=== PATIENT | female | born 1955 | race Caucasian/White ===

== ENCOUNTER → 2018-05-31 | Outpatient (CLI) | payer OTHER ==
[~2018-05-31] MED LIST: CALCIUM 500 +1 EAC5 PO; CENTRUM SILVER1 EAC4 PO; CIPRO500 MG PO; CLOTRIMAZOLE-BE15 GM TP; CYMBALTA20 MG PO; DICLOFENAC SODI75 MG PO; DIPROLENE 0.05%15 GM TP; DULCOLAX STOOL100 MG PO; FISH OIL 1,001000 M2 PO; FLEXERIL PO; FOLIC ACID1 MG PO; HYDROCODONE-AP1 EAC6 PO; METHOTREXATE 22.5 M1 PO; NUVIGIL150 MG PO; OMEGA-31000 M1 PO; ONDANSETRON HCL4 M2 PO; OXYBUTYNIN 5 MG5 M2 PO; PAXIL10 MG; PRILOSEC 20 MG20 MG PO; PROBIOTIC1 EAC1 PO; PROPRANOLOL 1010 M1 PO; TREXALL15 MG PO; VENTOLIN HFA 1818 GM INH; VITAMIN D1000 UNI1 PO; ZOCOR20 MG PO; ZOLOFT50 MG PO
[2018-05-31 16:13] LABS: ABSOLUTE EOSINOPHILS 0.2 thou/uL (0.0-0.7); ABSOLUTE LYMPHOCYTES 2.2 thou/uL (0.8-5.3); ABSOLUTE MONOCYTES 0.5 thou/uL (0.0-1.2); ABSOLUTE NEUTROPHILS 4.7 thou/uL (1.6-8.1); BASOPHILS 0.5 %; EOSINOPHILS 2.4 %; HEMOGLOBIN 13.9 gm/dL (12.0-15.0); LYMPHOCYTES 28.4 %; MCH 29.8 pg (26.0-34.0); MCHC 33.1 g/dL (28.0-37.0); MCV 90.2 fL (80.0-100.0); MONOCYTES 7.1 %; MPV 9.5 fl. (7.2-11.1); NUCLEATED RBCS 0 /100WBC; PLATELET COUNT* 184 thou/uL (150-400); POLYS 61.6 %; RBC 4.66 mil/uL (4.20-5.00); RDW-CV 12.9 % (10.5-14.5); WBC 7.6 thou/uL (4.0-11.0)
[2018-05-31 16:26] LABS: ALBUMIN 3.5 g/dL (3.4-5.0); ALKALINE PHOSPHATASE 56 U/L (46-116); ANION GAP 7 mmol/L (7-16); BUN 14 mg/dL (7-18); CALCIUM 8.7 mg/dL (8.5-10.1); CHLORIDE 103 mmol/L (98-107); CHOLESTEROL 195 mg/dL (<200); CO2 31 mmol/L (21-32); CREATININE 0.8 mg/dL (0.6-1.3); GLUCOSE 92 mg/dL (70-99); HDL CHOLESTEROL 52 mg/dL (>40); LDL CHOLESTEROL 123 mg/dL (<100); POTASSIUM 3.7 mmol/L (3.5-5.1); SERUM ASSESSMENT Clear; SGOT 14 U/L (15-37); SGPT 16 U/L (30-65); SODIUM 141 mmol/L (136-145); TC:HDL 3.8 Ratio (Not establshd); TOTAL BILIRUBIN 0.3 mg/dL (<0.1-1.0); TRIGLYCERIDE 101 mg/dL (<150); VLDL 20 mg/dL (<40)
[2018-06-01 04:06] LABS: GLYCOHEMOGLOBIN (HGB A1C) 5.3 % (4.8-5.6)
== END ==
LOC: M.LAB 15:55
PROVIDERS: Family Medicine
DX: Z00.01 Encounter for general adult medical examination with abnormal findings (principal); E55.9 Vitamin D deficiency, unspecified; L40.50 Arthropathic psoriasis, unspecified; E87.6 Hypokalemia; R25.2 Cramp and spasm; Z79.899 Other long term (current) drug therapy

== ENCOUNTER → 2018-06-22 | Outpatient (CLI) | payer OTHER ==
[2018-06-22 17:12] LABS: URINE BILIRUBIN NEGATIVE (Negative); URINE BLOOD 2+ (Negative); URINE CLARITY CLEAR; URINE COLOR YELLOW; URINE GLUCOSE-RANDOM NEGATIVE (Negative); URINE KETONES NEGATIVE (Negative); URINE LEUKOCYTES-REFLEX NEGATIVE (Negative); URINE NITRITE-REFLEX NEGATIVE (Negative); URINE PROTEIN NEGATIVE (Negative); URINE SPECIFIC GRAVITY >= 1.030 (1.005-1.030); URINE UROBILINOGEN 0.2 E.U./dl (0.2-1.0)
[2018-06-22 17:39] LABS: BACTERIA-REFLEX 1-9 Few /HPF (None Seen); CASTS None Seen /LPF (None Seen); SQUAMOUS 0-3 Few /LPF (0-3); URINE RBC 0-2 Rare /HPF (0-2); URINE WBC-REFLEX 0-5 Rare /HPF (0-5)
[2018-06-22 17:40] LABS: CRYSTALS None Seen /LPF (None Seen)
== END ==
LOC: M.LAB 16:58
PROVIDERS: Obstetrics & Gynecology
DX: R35.0 Frequency of micturition (principal); Z88.8 Allergy status to other drugs, medicaments and biological substances

== ENCOUNTER → 2018-06-27 | Outpatient (CLI) | payer OTHER | LOC: M.RAD 06-22 16:12 | DX: Z12.31 Encounter for screening mammogram for malignant neoplasm of breast (principal); Z01.411 Encounter for gynecological examination (general) (routine) with abnormal findings; M85.88 Other specified disorders of bone density and structure, other site; L40.50 Arthropathic psoriasis, unspecified; R29.890 Loss of height; Z91.040 Latex allergy status; Z78.0 Asymptomatic menopausal state; Z82.62 Family history of osteoporosis ==

== ENCOUNTER → 2018-07-20 | Outpatient (CLI) | payer OTHER | LOC: M.LAB 12:49 | DX: M85.80 Other specified disorders of bone density and structure, unspecified site (principal) ==

== ENCOUNTER → 2019-02-23 | Outpatient (CLI) | payer OTHER | LOC: M.MRI 06:30 | DX: M51.37 Other intervertebral disc degeneration, lumbosacral region (principal); R53.1 Weakness; M51.36 Other intervertebral disc degeneration, lumbar region; M51.26 Other intervertebral disc displacement, lumbar region ==

== ENCOUNTER → 2019-03-27 | Outpatient (CLI) | payer OTHER ==
[~2019-03-27] MED LIST changes: -CYMBALTA20 MG PO; +CYMBALTA30 MG PO; +CYMBALTA60 MG PO; +FLONASE 0.05%50 MCG NASAL; +MEDROLDOSEPACK PO; +TUMERIC PO; +ZALEPLON 10 MG10 M1 PO; +ambien PO
--- NOTE | 2019-03-28 14:27 | PAINCON ---
[address] [address] PAIN MANAGEMENT CONSULTATION Name: PRINCE BEDOLLA Room: [facility] JOSH HugoBen#: [id number] Admission: 03/27/19 Attend Phys: Salomón Sims MD Discharge: Date of : 55 Report #: [id number] THIS REPORT FOR: //name// CC: Salomón Flores DATE OF SERVICE: 03/27/2019 CHIEF COMPLAINT: Low back pain and pain in the sciatic nerve. HISTORY OF PRESENT ILLNESS: The patient is a 63-year-old female who has been referred to the pain clinic for evaluation of back and leg pain. The patient states that in the past, she has had problems with her low back. She has had pain that has radiated down into the sciatic nerve. She is experiencing pain that is problematic on the left leg. She also has some left hip pain. Notes that the pain is worse when she is active and doing quite a bit of walking. She has noticed some pain and discomfort when lying flat. She has used prednisone Dosepak, which have been helpful. Describes her discomfort as continuous, burning, aching and throbbing. She has had some shooting pain in her left leg as well as some pain in the left groin area. She notes worsening of this pain in 01/2019. Because of the benefits from the epidural steroid injection in the past, she has come to the pain clinic with the desire to undergo an injection. Also, has a history of psoriatic arthritis, fibromyalgia and irritable bowel problems. Rates her pain as an 8/10. ALLERGIES: ZANAFLEX, HYDROXYCHLOROQUINE, ARAVA, LATEX, SULFA. CURRENT MEDICATIONS: Propranolol 10 mg b.i.d., Flexeril 10 mg, simvastatin 20 mg, albuterol, fluconazole, Prilosec 20 mg, probiotic, fish oil 1000 mg, vitamin D 1000 mg, calcium plus D, folic acid, methotrexate 15 mg 1 time per week, Cymbalta, diclofenac, oxybutynin 5 mg, promethazine. PAST MEDICAL HISTORY: Scarlet fever, mitral valve prolapse, colon problems, irritable bowel, emotional problems, depression, anxiety, joint disease, arthritis, psoriatic arthritis, fibromyalgia, cytomegalovirus, sleep apnea. PAST SURGICAL HISTORY: Hernia repair, carpal tunnel release, pins in the right and left toes, tonsils in 1959, hammertoes with pins in 2007, bilateral carpal syndrome and tunnel release in , and there is left femoral hernia repair in 1984, right inguinal hernia repair in 2013, hiatal hernia and umbilical hernia repair in 1999. 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 She is working at this juncture. REVIEW OF SYSTEMS: Generally good health, recent weight changes, fatigue, [facility] [address] [facility] [place] [address] PAIN MANAGEMENT CONSULTATION Name: PRINCE BEDOLLA Room: [facility]#: [id number] Admission: 03/27/19 Attend Phys: Salomón Sims MD Discharge: Date of : 55 Report #: [id number] weakness, headaches, wears glasses, cataracts, hearing loss, palpitations, frequent diarrhea, frequent urination, musculoskeletal joint pain, joint stiffness and swelling, weakness of muscles, muscle pain, back pain, difficulty walking, change in hair and nails, frequent recurring headaches, lightheadedness, dizziness, numbness and tingling sensation, depression, insomnia, SULFA REACTIONS TO ANESTHETICS. LABORATORY DATA: MRI of the lumbar spine dated 02/23/2019: 1. L3-L4, moderate degenerative disk disease. Mild facet arthropathy bilaterally. Mild broad-based disk bulge. No spinal stenosis or neural foraminal narrowing. No changes since previous in 2014. 2. L4-L5, severe facet arthropathy is worse since previous with new grade 1 anterolisthesis of L4. Mild to moderate degenerative disk disease with mild broad-based disk bulge. No spinal stenosis or neural foraminal narrowing. 3. L5-S1, mild degenerative disk disease and severe facet arthropathy, slightly worse since previous 2014. Mild broad-based disk bulge. No spinal stenosis or neural foraminal narrowing. IMPRESSION: 1. At L4-L5, worsening of facet arthropathy since 05/28/2015 with new grade 1 anterolisthesis of L4. Mild to moderate degenerative disk disease and mild broad-based disk bulge. 2. At L5-S1, moderate to severe facet arthropathy with mild degenerative disk disease, slightly worse since previous. 3. At L3-L4, moderate degenerative disk disease is unchanged. PAIN CLINIC ASSESSMENT/PQRS: 1. History of osteoarthritis. The patient has fibromyalgia for the last 15 years. She is being treated for psoriatic arthritis. 2. Height 5 feet 2 inches, weight 184 pounds, BMI is 33. 3. Vital signs: Blood pressure 144/79, heart rate 76, respiratory rate 16, room air saturation is 94%, temperature 98.4. 4. Pain intensity 05/05. 5. Fall history. The patient has not fallen in the last 3 months. 6. Blood thinner. The patient is not on a blood thinning medication. 7. Hypertension. The patient is not being treated for hypertension. 8. Opioid greater than 6 weeks. The patient is not on an opioid regimen on a regular basis. 9. Risk assessment tool, low for opioid use. 10. Functional assessment tool, 53/70. 11. Fall history. 12. Recreational drug use. The patient denies use of recreational drugs. 13. Tobacco: The patient denies use of tobacco. 14. Alcohol: The patient denies frequent use of alcoholic beverages. PHYSICAL EXAMINATION: [place] [address] PAIN MANAGEMENT CONSULTATION Name: PRINCE BEDOLLA Room: [facility]#: [id number] Admission: 03/27/19 Attend Phys: Salomón Sims MD Discharge: Date of : 55 Report #: [id number] GENERAL: The patient is a well-developed, well-nourished, white female. Appears her stated age. She is alert and oriented x 3. Her affect is appropriate. Speech is fluent. HEENT: Normocephalic, atraumatic. Extraocular eye muscles intact. Sclerae nonicteric. Mucous membranes moist. HEART: Regular rate, history of mitral valve prolapse, cannot hear a murmur. NECK: Without adenopathy or JVD. MUSCULOSKELETAL: Upper extremity muscle strength is judged to be 5-/5 for the major muscle groups in the upper extremity. Deep tendon reflexes are trace at the biceps bilaterally. The patient is able to lift her hands over her head. The patient stands with a slightly forward bending positioning. States that she notes increased pain if she stands directly and straight. Left and right lateral bending cause some increased back discomfort. The patient is unable to stand erect and perform lumbar extension. Notes that this causes more pain and discomfort. Deep tendon reflexes at the knees are trace. Ankles absent. The patient states that she sleeps in a recliner. She is unable to lay comfortably flat. While lying flat, notes some increased pain in her back. Anterior, posterior spring tests are negative. The patient does complain of some numbness and tingling down in the lower portion of her back on the left side with pain radiating down the L5-S1 dermatomal distribution on the left. Has left and right paraspinal muscle soreness. Notes some pain in the left groin area and anterior portion of her calf. IMPRESSION: 1. Lumbar radiculopathy with L5-S1 dermatomal distribution. 2. History of lumbar radiculopathy. 3. Mitral valve prolapse. 4. Degenerative joint disease with psoriatic arthritis and osteoarthritis. 5. History of migraine headaches. 6. Irritable bowel syndrome. 7. Fibromyalgia. 8. Morbid obesity. 9. Status post Diane fundoplication. 10. Status post umbilical hernia and inguinal herniorrhaphies. 11. Status post bunionectomies and hammertoe repair. RECOMMENDATIONS: We discussed treatment options with the patient. At this juncture, we will provide her with a Medrol Dosepak. She would then after she has been precerted by her insurance carrier return to the pain clinic at which time she will then undergo an epidural steroid injection to help with the lumbar radicular pain she is experiencing down into her leg. She will call us [place] [address] PAIN MANAGEMENT CONSULTATION Name: PRINCE BEDOLLA Room: [facility] JOSH Garcia#: [id number] Admission: 03/27/19 Attend Phys: Salomón Sims MD Discharge: Date of : 55 Report #: [id number] We would like to thank you for letting us participate in her care. We hope she continues to improve. <ELECTRONICALLY SIGNED> By: Salomón Sims MD 03/28/19 1427 [id number]. Raheel Sims MD /[facility]
== END ==
LOC: M.PC 02-22 10:10
DX: M51.37 Other intervertebral disc degeneration, lumbosacral region (principal); M12.88 Other specific arthropathies, not elsewhere classified, other specified site; M47.816 Spondylosis without myelopathy or radiculopathy, lumbar region; M43.17 Spondylolisthesis, lumbosacral region; I10 Essential (primary) hypertension

== ENCOUNTER → 2019-04-17 | Outpatient (CLI) | payer OTHER ==
--- NOTE | ~2019-04-17 | PAINCON ---
[address] [address] PAIN MANAGEMENT CONSULTATION Name: PRINCE BEDOLLA Room: [facility].#: [id number] Admission: 04/17/19 Attend Phys: Salomón Sims MD Discharge: Date of : 55 Report #: [id number] THIS REPORT FOR: //name// CC: Salomón Flores DO DATE OF SERVICE: 04/17/2019 CHIEF COMPLAINT: Here for an epidural steroid injection. HISTORY: The patient is a 63-year-old female who has been referred to the Pain Clinic because of chronic pain involving her low back area. She has had pain that radiates down into the lower portion of her back. She has undergone epidural steroid injections in the past because of sciatic nerve problems. She is having pain and discomfort in her low back and hip on both sides. Left side is more problematic than right. Has not noticed any significant bowel or bladder dysfunction. She has returned today for an epidural steroid injection. She has noted worsening of her pain since early January. ALLERGIES: ZANAFLEX, HYDROCHLOROQUINE, ARAVA, LATEX, SULFA. PAIN CLINIC ASSESSMENT/PQRS: 1. History of osteoarthritis. The patient has fibromyalgia for the last 15 years. She is also being treated for psoriatic arthritis. 2. Height 5 feet 2 inches, weight 184 pounds, BMI is 33. 3. Vital Signs: Blood pressure 112/61, heart rate 74, respiratory rate 16, room air saturation 95%, temperature 98.5. 4. Pain intensity, 9/10. 5. Fall history: The patient has not fallen in the last 3 months. 6. Blood thinner. The patient is not on a blood thinning medication. 7. Hypertension. The patient is not being treated for hypertension. 8. Opioids greater than 6 weeks. The patient is not on a regular opioid regimen. 9. Risk assessment tool, low for opioid use. 10. Functional assessment tool, 53/70. 11. Fall history: The patient has not fallen. 12. Recreational drug use. The patient denies use of recreational drugs. 13. Tobacco: The patient denies use of tobacco. 14. Alcohol: The patient denies frequent use of alcoholic beverages. PHYSICAL EXAMINATION: GENERAL: The patient is a well-developed, well-nourished white female. Appears her stated age. She is alert and oriented x 3. Her affect is appropriate. Speech is fluent. HEENT: Normocephalic, atraumatic. Extraocular eye [place] [address] PAIN MANAGEMENT CONSULTATION Name: PRINCE BEDOLLA Room: [facility]#: [id number] Admission: 04/17/19 Attend Phys: Salomón Sims MD Discharge: Date of : 55 Report #: [id number] nonicteric. Mucous membranes are moist. HEART: Regular rate. The patient has history of mitral valve prolapse. NECK: Without adenopathy or JVD. MUSCULOSKELETAL: Without significant scoliosis, kyphosis or lordosis. Muscle strength in the upper extremity 5-/5, and muscle strength in lower extremity 5-/5. The patient has pain and discomfort that is radiating down to the most posterior portion of her back in the left down into the L5-S1 dermatomal distribution. Has pain and discomfort on the right side in the L5-S1 dermatomal distribution as well. IMPRESSION: 1. Lumbar radiculopathy with L5-S1 dermatomal distribution. 2. History of lumbar radiculopathy. 3. Mitral valve prolapse history. 4. Degenerative joint disease with psoriatic arthritis and osteoarthritis. 5. History of migraine headaches. 6. Irritable bowel syndrome. 7. Fibromyalgia. 8. Morbid obesity. 9. Status post Diane fundoplication. 10. Status post umbilical hernia and inguinal herniorrhaphies. 11. Status post bunionectomies and hammertoe repair. RECOMMENDATIONS: We discussed treatment options with the patient. Risks and benefits of an epidural steroid injection were again reviewed. Possible complications of the procedure, which could include but are not limited to infection, worsening pain, no improvement in pain, nerve damage, spinal headache and the patient elects to proceed. PROCEDURE NOTE: The patient was taken to the procedure area. She was then placed in a prone position. A pillow was placed under the abdomen to bolster and improve positioning. Her back was sterilely prepped with a Betadine solution and allowed to dry. Fluoroscopy using anterior, posterior as well as lateral viewing were implemented. A 25-gauge needle was then injected in the L5-S1 midline area. A total of 5 mL of 0.5% bupivacaine was infiltrated. A 17-gauge Tuohy with loss of resistance technique was used to gain access to the epidural space. There was no CSF, heme or paresthesia. Total of 80 mg Depo-Medrol, 40 mg triamcinolone and 2 mL of 0.25% bupivacaine was injected. The patient tolerated the procedure well. There were no complications. Pain decreased to 6 at the time of discharge, down from 9. She will follow up in the future as needed. A total of 13 seconds fluoro time was used. A set of latex-free gloves were used, given the patient has a history of LATEX ALLERGIES. [address] [place] [address] PAIN MANAGEMENT CONSULTATION Name: PRINCE BEDOLLA [facility] [id number] Admission: 04/17/19 Attend Phys: Salomón Sims MD Discharge: Date of : 55 Report #: [id number] We would like to thank you for letting us participate in her care. By: 1434 [id number]. Raheel Sims MD /nt
== END | disposition home or self-care (01) ==
LOC: M.PC 05:18
DX: M54.16 Radiculopathy, lumbar region (principal); M19.90 Unspecified osteoarthritis, unspecified site; M79.7 Fibromyalgia; E66.01 Morbid (severe) obesity due to excess calories; I10 Essential (primary) hypertension; Z98.890 Other specified postprocedural states; Z88.2 Allergy status to sulfonamides; Z88.8 Allergy status to other drugs, medicaments and biological substances; Z91.040 Latex allergy status; Z68.33 Body mass index [BMI] 33.0-33.9, adult; Z79.899 Other long term (current) drug therapy

== ENCOUNTER → 2019-05-17 | Outpatient (CLI) | payer OTHER ==
--- NOTE | 2019-06-04 11:25 | PAINCON ---
[address] [address] PAIN MANAGEMENT CONSULTATION Name: PRINCE BEDOLLA Room: [facility] Kyle.#: [id number] Admission: 05/17/19 Attend Phys: Salomón Sims MD Discharge: Date of : 55 Report #: [id number] THIS REPORT FOR: //name// CC: Salomón Flores DATE OF SERVICE: 05/17/2019 CHIEF COMPLAINT: "Here for an epidural injection. I am still having pain down in my back." HISTORY: The patient is a 63-year-old female who has been seen in the pain clinic. The patient has pain in the low back area. She has undergone epidural steroid injections in the past and gleaned benefits from these. She returns today indicating that she continues to have pain, which is radiating down into the lower portion of her back in the L5-S1 dermatomal distribution. She denies any problems or complications in the past. She has returned today with the hopes of undergoing an epidural steroid injection and helping to decrease the pain that she is experiencing, which she rates as a 5/10 at this point. ALLERGIES: ZANAFLEX, HYDROXYCHLOROQUINE, ARAVA, LATEX, SULFA. CURRENT MEDICATIONS: Albuterol 18 mg 2 puffs p.r.n., Nuvigil 150 mg, Os-[place] 500 mg, vitamin D 1000 units, clotrimazole- betamethasone cream, Flexeril 10 mg t.i.d., Voltaren 75 mg, Cymbalta 60 mg, Flonase 0.05% nasal spray, folic acid 1 mg, probiotic lactobacillus, methotrexate 2.5 mg, multivitamin, Centrum Silver, and Dafter 3 fatty acids. PAIN CLINIC ASSESSMENT AND PQRS: 1. The patient has fibromyalgia for the last 15 years. She is being treated for psoriatic arthritis. 2. Height 5 feet 2 inches, weight 187 pounds, BMI is 34. 3. Vital Signs: Blood pressure 134/70, heart rate 70, respiratory rate 16, room air saturation is 97%. Temperature 97.9. 4. Pain intensity 5/10. 5. Fall history: The patient has not fallen in the last 3 months. 6. Blood thinner. The patient is not on a blood thinning medication. 7. Hypertension. The patient is not being treated for hypertension. 8. Opioids greater than 6 weeks. The patient is not on a regular opioid regimen. 9. Risk assessment tool, low for opioid use. 10. Functional assessment tool 53/70. 11. Recreational drugs. The patient denies use of recreational drugs. 12. Tobacco: The patient denies use of tobacco. 13. Alcohol. The patient [place] [address] PAIN MANAGEMENT CONSULTATION Name: PRINCE BEDOLLA Room: [facility]#: [id number] Admission: 05/17/19 Attend Phys: Salomón Sims MD Discharge: Date of : 55 Report #: [id number] PHYSICAL EXAMINATION: GENERAL: The patient is a well-developed, well-nourished white female. She appears her stated age. She is alert and oriented x 3. Her affect is appropriate. Speech is fluent. HEENT: Normocephalic, atraumatic. Extraocular eye muscles intact. Sclerae nonicteric. Mucous membranes are moist. NECK: Without adenopathy or JVD. The patient does have a history of mitral valve prolapse. MUSCULOSKELETAL: The patient without significant scoliosis, kyphosis or lordosis. Muscle strength in the upper extremities 5-/5 and strength in the lower extremities 5-/5. The patient has some pain and discomfort that radiates down into the posterior portion of her leg in the L5-S1 dermatomal distribution on the left. The patient has pain and discomfort in the right side in the L5-S1 dermatomal distribution as well. IMPRESSION: 1. Lumbar radiculopathy with L5-S1 dermatomal distribution bilaterally. 2. History of lumbar radiculopathy. 3. Mitral valve prolapse history. 4. Degenerative joint disease with psoriatic arthritis and osteoarthritis. 5. History of migraine headaches. 6. Irritable bowel syndrome. 7. Fibromyalgia. 8. Morbid obesity. 9. Status post Diane fundoplication. 10. Status post umbilical hernia and inguinal hernia orifice repairs. 11. Status post bunionectomy and hammertoe repair. RECOMMENDATIONS: We discussed treatment options with the patient. At this juncture, she feels that the epidural steroid injections have been helpful. She would like to proceed with another injection. She has had no complication from the previous injection. She is reminded of the possible complication of the procedure, which could include but are not limited to infection, worsening of pain, no improvement in pain, nerve pain, increased muscle soreness, nerve damage with paralysis. The patient elects to proceed. PROCEDURE NOTE: The patient was taken to the procedure area. She was then assisted in getting on the examination table. Her back was sterilely prepped with a Betadine solution and allowed to dry. A 0.25% bupivacaine was then injected using a 25-gauge needle with a right lateral paramedian approach. Aspiration was negative. A 17-gauge Tuohy with loss of resistance technique using a right paramedian approach at the L5-S1 area was undertaken. The patient tolerated the procedure well. There were no complications. She remained in the Pain Clinic for an appropriate amount of time. She will follow up in [place] [address] PAIN MANAGEMENT CONSULTATION Name: PRINCE BEDOLLA Room: [facility]#: [id number] Admission: 05/17/19 Attend Phys: Salomón Sims MD Discharge: Date of : 55 Report #: [id number] We would like to thank you for letting us participate in her care. We hope she continues to improve. <ELECTRONICALLY SIGNED> By: Salomón Sims MD 06/04/19 1125 0115 0641N. Raheel Sims MD /nt
== END | disposition home or self-care (01) ==
LOC: M.PC 02:11
DX: M54.16 Radiculopathy, lumbar region (principal); G89.29 Other chronic pain; M19.90 Unspecified osteoarthritis, unspecified site; M79.7 Fibromyalgia; G43.909 Migraine, unspecified, not intractable, without status migrainosus; E66.01 Morbid (severe) obesity due to excess calories; Z98.890 Other specified postprocedural states; Z79.899 Other long term (current) drug therapy; Z68.34 Body mass index [BMI] 34.0-34.9, adult; Z88.2 Allergy status to sulfonamides; Z91.040 Latex allergy status

== ENCOUNTER → 2019-07-06 | Outpatient (CLI) | payer OTHER | LOC: M.RAD 14:36 | DX: Z12.31 Encounter for screening mammogram for malignant neoplasm of breast (principal) ==

== ENCOUNTER → 2019-08-16 | Outpatient (CLI) | payer OTHER ==
--- NOTE | ~2019-08-16 | PAINCON ---
[address] [address] PAIN MANAGEMENT CONSULTATION Name: PRINCE BEDOLLA Room: [facility].#: [id number] Admission: 08/16/19 Attend Phys: Salomón Sims MD Discharge: Date of : 55 Report #: [id number] THIS REPORT FOR: //name// CC: Salomón Flores DO DATE OF SERVICE: 08/16/2019 CHIEF COMPLAINT: Low back pain and leg pain. HISTORY: The patient is a 63-year-old female who has been seen in the Pain Clinic because of lumbar radiculopathy. She has undergone epidural steroid injections in the past because of lumbar radiculopathy. She has returned to the Pain Clinic because of increased pain in the low back area. She has been experiencing increased pain because of her fibromyalgia as well as some psoriatic arthritis. She has pain in her left hip, which is radiating down into her back and down into her leg in the area of her sciatic nerve. Rates the intensity of her pain as a 5/10. She has returned to the Pain Clinic to undergo an epidural injection. ALLERGIES: ZANAFLEX, HYDROXYCHLOROQUINE, ARAVA, LATEX, SULFA. PAIN CLINIC ASSESSMENT AND PQRS: 1. The patient has fibromyalgia for the last 15 years. She is being treated for psoriatic arthritis. 2. Height 5 feet 2 inches, weight 185 pounds, BMI 33.9. 3. Vital signs: Blood pressure 132/61, heart rate 66, respiratory rate 16, room air saturation 96%, and temperature 97.8. 4. Pain intensity 5/10. 5. Fall history: The patient has not fallen in the last 3 months. 6. Blood thinner. The patient is not on a blood thinning medication. 7. Hypertension. The patient is not being treated for hypertension. 8. Opioids greater than 6 weeks. The patient is not receiving opioids on a regular basis. 9. Risk assessment tool, low for opioid use. 10. Functional assessment tool, 53/70. 11. Recreational drugs: The patient denies. 12. Tobacco: The patient denies use of tobacco. 13. Alcohol. The patient denies use of alcoholic beverages. PHYSICAL EXAMINATION: The patient is without significant scoliosis, kyphosis or lordosis. The patient has pain in the lower portion of her back with pain radiating down into the L5-S1 dermatomal distribution primarily on the left. IMPRESSION: [place] [address] PAIN MANAGEMENT CONSULTATION Name: PRINCE BEDOLLA Room: [facility]#: [id number] Admission: 08/16/19 Attend Phys: Salomón Sims MD Discharge: Date of : 55 Report #: [id number] 1. Lumbar radiculopathy at L5-S1 dermatomal distribution bilaterally. 2. History of lumbar radiculopathy. 3. Mitral valve prolapse history. 4. Degenerative joint disease with psoriatic arthritis and osteoarthritis. 5. History of migraine headaches. 6. Irritable bowel syndrome. 7. Fibromyalgia. 8. Morbid obesity. 9. Status post Diane fundoplication. 10. Status post umbilical hernia repair and inguinal hernia orifice repairs. 11. Status post bunionectomy and hammertoe repair. RECOMMENDATIONS: We discussed treatment options with the patient. Risks and benefits of an epidural steroid injection were discussed. They include but are not limited to infection, worsening of pain, no improvement of pain, nerve damage, and spinal headache and the patient elects to proceed. PROCEDURE NOTE: The patient was taken to the procedure area. She was then assisted in getting on the examination table. Her back was sterilely prepped with a Betadine solution. A 0.25% bupivacaine was infiltrated in the L5-S1 area. This area had been sterilely prepped with Betadine. It was anesthetized using 0.25% bupivacaine. A 17-gauge Tuohy with loss of resistance technique was used to gain access to the epidural space. There was no CSF, heme or paresthesia. Total of 80 mg Depo-Medrol, 40 mg triamcinolone and 2 mL of 0.25% bupivacaine was injected. The patient tolerated the procedure well. She remained in the Pain Clinic for an appropriate amount of time. She will follow up in the future as needed. We would like to thank you for letting us participate in her care. We hope she continues to improve. By: 2157N. Raheel Sims MD /nt
== END | disposition home or self-care (01) ==
LOC: M.PC 05:05
DX: M54.16 Radiculopathy, lumbar region (principal); G89.29 Other chronic pain; M79.7 Fibromyalgia; M19.90 Unspecified osteoarthritis, unspecified site; E66.01 Morbid (severe) obesity due to excess calories; Z98.890 Other specified postprocedural states; Z79.899 Other long term (current) drug therapy; Z91.040 Latex allergy status; Z88.2 Allergy status to sulfonamides; Z68.33 Body mass index [BMI] 33.0-33.9, adult; Z88.8 Allergy status to other drugs, medicaments and biological substances

== ENCOUNTER → 2019-10-02 | Outpatient (CLI) | payer OTHER ==
[2019-10-02 08:10] LABS: ALBUMIN 3.6 g/dL (3.4-5.0); CALCIUM 8.3 mg/dL (8.5-10.1); POTASSIUM 3.8 mmol/L (3.5-5.1); TOTAL BILIRUBIN 0.5 mg/dL (<0.1-1.0)
== END ==
LOC: M.LAB 07:32
PROVIDERS: Nurse Practitioner Family
DX: L40.50 Arthropathic psoriasis, unspecified (principal); R79.89 Other specified abnormal findings of blood chemistry

== ENCOUNTER → 2020-01-17 | Outpatient (CLI) | payer OTHER | LOC: M.LAB 15:04 | PROVIDERS: ATTEND Family Medicine | DX: Z03.818 Encounter for observation for suspected exposure to other biological agents ruled out (principal) ==

== ENCOUNTER → 2020-07-08 | Outpatient (CLI) | payer OTHER | LOC: M.RAD 10:46 | PROVIDERS: ATTEND Nurse Practitioner Family | DX: Z12.31 Encounter for screening mammogram for malignant neoplasm of breast (principal); N64.89 Other specified disorders of breast ==

== ENCOUNTER 2021-04-23 14:36 | Emergency (ER) | payer OTHER ==
[~2021-04-23] VITALS: Ht 157.5 cm; Wt 86.2 kg
[2021-04-23] MEDS ORDERED: PROBIOTIC1 EAC7 PO (14:48)
[2021-04-23] MEDS ORDERED: CALCIUM + D3 E1 EACH PO (14:49)
[2021-04-23] MEDS ORDERED: ZINC50 M1 PO (14:49)
[2021-04-23 15:36] LABS: ABSOLUTE BASOPHILS 0.1 thou/uL (0.0-0.2); ABSOLUTE EOSINOPHILS 0.1 thou/uL (0.0-0.7); ABSOLUTE LYMPHOCYTES 1.1 thou/uL (0.8-5.3); ABSOLUTE MONOCYTES 0.2 thou/uL (0.0-1.2); ABSOLUTE NEUTROPHILS 7.1 thou/uL (1.6-8.1); BASOPHILS 0.9 %; EOSINOPHILS 0.7 %; HEMATOCRIT 41.5 % (37.0-47.0); HEMOGLOBIN 14.3 gm/dL (12.0-15.0); LYMPHOCYTES 12.9 %; MCH 30.8 pg (26.0-34.0); MCHC 34.4 g/dL (28.0-37.0); MCV 89.7 fL (80.0-100.0); MONOCYTES 2.7 %; MPV 9.6 fl. (7.2-11.1); NUCLEATED RBCS 0 /100WBC; PLATELET COUNT* 191 thou/uL (150-400); POLYS 82.8 %; RBC 4.63 mil/uL (4.20-5.00); WBC 8.6 thou/uL (4.0-11.0)
[2021-04-23 15:42] LABS: CALCIUM 8.8 mg/dL (8.5-10.1); CREATININE 0.7 mg/dL (0.6-1.3); POTASSIUM 3.7 mmol/L (3.5-5.1)
[2021-04-23 15:46] LABS: ALBUMIN 3.9 g/dL (3.4-5.0); TOTAL BILIRUBIN 0.6 mg/dL (<0.1-1.0); TOTAL PROTEIN 7.2 g/dL (6.4-8.2)
[2021-04-23 16:33] LABS: URINE BILIRUBIN NEGATIVE (Negative); URINE BLOOD NEGATIVE (Negative); URINE CLARITY CLEAR; URINE COLOR YELLOW; URINE GLUCOSE-RANDOM NEGATIVE (Negative); URINE KETONES TRACE (Negative); URINE LEUKOCYTES-REFLEX TRACE (Negative); URINE NITRITE-REFLEX NEGATIVE (Negative); URINE PROTEIN NEGATIVE (Negative); URINE SPECIFIC GRAVITY 1.015 (1.005-1.030); URINE UROBILINOGEN 0.2 E.U./dl (0.2-1.0)
[2021-04-23 16:43] LABS: MUCUS None Seen strn/LPF (None Seen); SQUAMOUS >10 Many /LPF (0-3)
[2021-04-23 16:44] LABS: BACTERIA-REFLEX None Seen /HPF (None Seen); CASTS None Seen /LPF (None Seen); CRYSTALS None Seen /LPF (None Seen); URINE RBC 0-2 Rare /HPF (0-2); URINE WBC-REFLEX 0-5 Rare /HPF (0-5)
[2021-04-23] MEDS ORDERED: TRANSDERM-SCOP1 EACH TRANSDERM (19:29)
[2021-04-23] MEDS ORDERED: MECLIZINE HCL25 M1 PO (19:29)
[2021-04-23 19:40] VITALS: BP 113/51
--- NOTE | 2021-04-24 15:08 | EKG ---
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1955 Requested By: Kieran Varghese Order Number: [id number] MD: Kenn Santiago Measurements Intervals [place] Rate: 72 P: 50 [place]: 176 QRS: 33 QRSD: 80 T: 34 QT: 420 QTc: 460 Interpretive Statements Sinus rhythm Abnormal R-wave progression, early transition Compared to ECG 08/26/2014 12:43:13 No significant changes Electronically Signed On 04-24-2021 15:08:27 CDT by Kenn Santiago [email or web address] <ELECTRONICALLY SIGNED> By: Kenn Santiago MD, [facility] 04/24/21 1508 1459 1459 Kenn Santiago MD, [facility] /EPI
== END 2021-04-23 19:42 | disposition home or self-care (01) ==
LOC: M.ERS 14:36
PROVIDERS: Physician Assistant
DX: R42 Dizziness and giddiness (principal); M79.7 Fibromyalgia; Z88.8 Allergy status to other drugs, medicaments and biological substances; Z91.040 Latex allergy status; Z88.2 Allergy status to sulfonamides; Z79.899 Other long term (current) drug therapy